=== PATIENT | female | born 1990 | race Caucasian/White ===

== ENCOUNTER 2016-07-11 04:59 | Emergency (ER) | payer SELFPAY ==
[~2016-07-11] VITALS: Ht 165.1 cm; Wt 67.0 kg
[2016-07-11 05:07] VITALS: BP 116/62; PULSE 81; RESP 16; TEMP 98.5; O2SAT 98
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
== END 2016-07-11 06:04 | disposition left against medical advice (07) ==
LOC: NEPC 04:59 → NEPF 06:04
DX: Z04.71 Encounter for examination and observation following alleged adult physical abuse (principal)
CPT/HCPCS: 99281